=== PATIENT | female | born 1975 | race Caucasian/White ===

== ENCOUNTER 2019-03-28 13:00 | Emergency (ER) | payer OTHER ==
[2019-03-28 13:39] VITALS: BP 101/67; RESP 18; TEMP 97.7; BMI 30.4
--- NOTE | 2019-03-28 15:36 | ED PDOC ---
Arrival/HPI - General Chief Complaint: Lower Extremity Problem/Injury Time Seen by Provider: 03/28/19 15:13 - History of Present Illness Narrative History of Present Illness (Text): 03/28/19 15:13 Sridevi Barber is a 43 year old female, with no significant past medical history, who presents to the emergency department complaining of right lower leg swelling since 2 days. Patient reports some pain to calf and right foot. Patient also appreciates swelling right foot. Patient denies fall / trauma, chest pain, shortness of breath, abdominal pain, nausea, vomiting, diarrhea, dysuria, hematuria, back pain, neck pain, or any other complaints. Time/Duration: < week (2 days) Symptom Course: Unchanged Activities at Onset: Light Context: Home Past Medical History - Provider Review Nursing Documentation Reviewed: Yes Primary Care Provider: Sridevi Layton - Psychiatric Hx Substance Use: No Family/Social History - Physician Review Nursing Documentation Reviewed: Yes Family/Social History: Unknown Family HX Smoking Status: Never Smoked Hx Alcohol Use: No Hx Substance Use: No Allergies/Home Meds Allergies/Adverse Reactions: Allergies No Known Allergies Allergy (Verified 03/28/19 14:55) Home Medications: Home Meds Medication Instructions Recorded Confirmed No Known Home Med 03/28/19 03/28/19 Review of Systems - Review of Systems Eyes: absent: Vision Changes ENT: absent: Hearing Changes Respiratory: absent: SOB, Cough, Sputum, Wheezing Cardiovascular: Edema. absent: Chest Pain, Palpitations, Calf Pain Gastrointestinal: absent: Abdominal Pain, Diarrhea, Nausea, Vomiting Genitourinary Female: absent: Dysuria, Hematuria Musculoskeletal: Other (right lower leg swelling; some calf and foot pain. some swelling to right foot. ). absent: Back Pain, Neck Pain Physical Exam Vital Signs Reviewed: Yes Vital Signs Temp Pulse Resp BP Pulse Ox 03/28/19 13:32 97.7 F 85 18 101/67 96 Temperature: Afebrile Blood Pressure: Normal Pulse: Regular Respiratory Rate: Normal Appearance: Positive for: Well-Appearing, Non-Toxic, Comfortable Pain Distress: None Mental Status: Positive for: Alert and Oriented X 3 - Systems Exam Head: Present: Atraumatic, Normocephalic Pupils: Present: PERRL Extroacular Muscles: Present: EOMI Conjunctiva: Present: Normal Mouth: Present: Moist Mucous Membranes Neck: Present: Normal Range of Motion Respiratory/Chest: Present: Clear to Auscultation, Good Air Exchange. No: Respiratory Distress, Accessory Muscle Use, Wheezes, Rales, Rhonchi Cardiovascular: Present: Regular Rate and Rhythm, Normal S1, S2. No: Murmurs, Rub, Gallop Abdomen: Present: Normal Bowel Sounds. No: Tenderness, Distention, Peritoneal Signs, Rebound, Guarding Back: Present: Normal Inspection Upper Extremity: Present: Normal Inspection. No: Cyanosis, Edema Lower Extremity: Present: NORMAL PULSES (distal pulses intact), Normal ROM, Tenderness (right calf and dorsum of right foot), Swelling (right foot), Other (L foot WNL). No: Edema, Temperature Abnormalties (normal color) Neurological: Present: GCS=15, CN II-XII Intact, Speech Normal, Motor Func Grossly Intact, Normal Sensory Function, Gait Normal Skin: Present: Warm, Dry, Normal Color. No: Rashes Psychiatric: Present: Alert, Oriented x 3, Normal Insight, Normal Concentration Medical Decision Making ED Course and Treatment: 03/28/19 15:13 Impression: Patient is a 43 year old male, with no significant past medical history, who presents to the emergency department complaining of right lower leg swelling since 2 days. Plan: -- Reassess and disposition Prior Visits: Notes and results from previous visits were reviewed. Progress Notes: 03/28/19 16:48 DVT study negative Xrays R foot and R ankle negative 03/28/19 17:21 Dane wrap placed. Spoke to patient's son and explained of need to follow-up with orthopedics for further evaluation. - RAD Interpretation Radiology Orders: 03/28/19 15:23 ANKLE RIGHT 3 VIEWS ROUTINE [RAD] Stat FOOT RIGHT 3 VIEWS ROUTINE [RAD] Stat 03/28/19 15:28 DUPLEX LOWER EXTRM VEIN RIGHT [US] Stat - Medication Orders Current Medication Orders: Discontinued Medications Ibuprofen (Motrin Tab) 400 mg PO STAT STA Stop: 03/28/19 15:31 - Scribe Statement The provider has reviewed the documentation as recorded by the Scribe Joseph Miller All medical record entries made by the Scribe were at my direction and personally dictated by me. I have reviewed the chart and agree that the record accurately reflects my personal performance of the history, physical exam, medical decision making, and the department course for this patient. I have also personally directed, reviewed, and agree with the discharge instructions and disposition. Disposition/Present on Arrival - Present on Arrival Any Indicators Present on Arrival: No History of DVT/PE: No History of Uncontrolled Diabetes: No Urinary Catheter: No History of Decub. Ulcer: No History Surgical Site Infection Following: None - Disposition Have Diagnosis and Disposition been Completed?: Yes Diagnosis: Ankle swelling, Ankle sprain Disposition: HOME/ ROUTINE Disposition Time: 16:57 Patient Plan: Discharge Patient Problems: Current Active Problems Problem Status Onset Ankle sprain Acute Ankle swelling Acute Condition: GOOD Discharge Instructions (ExitCare): Sprain (DC) Additional Instructions: Follow-up with PMD within 2 days. Motrin for pain. Follow-up with orthopedics if persistent pain. Rest, ice, compress and elevated. Referrals: PCP,NO [Primary Care Provider] - Follow up with primary Enma Bautista MD [Staff Provider] - Follow up with primary Forms: [employer] (Bel[place]ian)
--- NOTE | 2019-03-28 17:00 | RAD ---
Date of service: 03/28/2019 PROCEDURE: Right Ankle Radiographs. HISTORY: R ankle pain COMPARISON: None available. TECHNIQUE: 3 views obtained. FINDINGS: BONES: No evidence of acute displaced fracture nor dislocation. JOINTS: Normal. No osteoarthritis. Ankle mortise maintained. Talar dome intact SOFT TISSUES: Normal. There appears to be some very minimal soft tissue swelling over the lateral malleolus. OTHER FINDINGS: None. IMPRESSION: No evidence of acute displaced fracture nor dislocation.
--- NOTE | 2019-03-28 17:05 | RAD ---
Date of service: 03/28/2019 PROCEDURE: Right Foot Radiographs. HISTORY: Right foot pain COMPARISON: None. TECHNIQUE: 3 views obtained. FINDINGS: BONES: Normal. No fracture. JOINTS: Normal. SOFT TISSUES: Normal. OTHER FINDINGS: None. IMPRESSION: No evidence of acute displaced fracture nor dislocation. If symptoms persist or occult fracture suspected clinically consider repeat radiographs in 7-10 days as most fractures should become radiographically evident in this timeframe.
--- NOTE | 2019-03-28 18:10 | US ---
PROCEDURE: Right lower extremity venous US HISTORY: Leg pain and swelling. Evaluate for DVT. PHYSICIAN(S): Diaz Carmona M.D. TECHNIQUE: Duplex sonography and color-flow Doppler with graded compression were used to evaluate the deep venous system of the right lower extremity. FINDINGS: The visualized deep venous system of the right lower extremity is sonographically normal and compressible. Normal waveforms and augmentation are seen. There is no sonographic evidence for deep venous thrombosis in the visualized segments of the right lower extremity. IMPRESSION: 1. No sonographic evidence for deep venous thrombosis in the visualized segments of the right lower extremity.
[2019-03-28 19:52] VITALS: PULSE 80; O2SAT 99
== END 2019-03-28 19:52 | disposition home or self-care (01) ==
LOC: ED 13:00
DX: S93.401A Sprain of unspecified ligament of right ankle, initial encounter (principal); X58.XXXA Exposure to other specified factors, initial encounter; M79.89 Other specified soft tissue disorders